=== PATIENT | female | born 1955 | race Caucasian/White ===

== ENCOUNTER → 2020-07-28 | Outpatient (CLI) | payer OTHER ==
[~2020-07-28] MED LIST: CLARITIN 10MG T10 MG PO; COLACE 100MG C100 MG PO; ERYTHROMYCIN OP1 GM OP; OMEPRAZOLE20 M1 PO; TIZANIDINE HCL2 MG PO
== END ==
LOC: KOH-I 13:30
DX: E04.1 Nontoxic single thyroid nodule (principal)
CPT/HCPCS: 76536

== ENCOUNTER → 2020-09-20 | Outpatient (CLI) | payer OTHER | LOC: RAD 09:53 | DX: M25.562 Pain in left knee (principal); M17.12 Unilateral primary osteoarthritis, left knee | CPT/HCPCS: 73564 ==

== ENCOUNTER → 2021-04-21 | Outpatient (CLI) | payer OTHER ==
[2021-04-21 13:26] LABS: BUN/CREATININE RATIO 16 (0-10)
[2021-04-22 10:12] LABS: CREATININE, URINE 149.6 mg/dL (Not Estab.)
== END ==
LOC: LAB 12:35
PROVIDERS: Family Medicine
DX: E11.9 Type 2 diabetes mellitus without complications (principal); E53.8 Deficiency of other specified B group vitamins; E78.2 Mixed hyperlipidemia; K21.9 Gastro-esophageal reflux disease without esophagitis; Z79.899 Other long term (current) drug therapy
CPT/HCPCS: 36415; 80053; 82043; 82570; 82607; 83036; 83735

== ENCOUNTER → 2021-04-25 | Outpatient (CLI) | payer OTHER | LOC: EXRD 09:22 | DX: R07.9 Chest pain, unspecified (principal); R06.02 Shortness of breath | CPT/HCPCS: 71046 ==

== ENCOUNTER → 2021-08-31 | Outpatient (CLI) | payer OTHER | LOC: EXRD 15:03 | DX: M25.561 Pain in right knee (principal); M17.11 Unilateral primary osteoarthritis, right knee | CPT/HCPCS: 73564 ==

== ENCOUNTER → 2021-09-21 | Day surgery (SDC) | payer OTHER ==
[~2021-09-21] MED LIST changes: +B-12500 MCG PO; +FLONASE ALLER15.8 ML; +VOLTAREN 0.1%2.5 ML OP; +XYZAL5 MG PO
== END | disposition home or self-care (01) ==
LOC: OR 06:59
DX: K21.00 Gastro-esophageal reflux disease with esophagitis, without bleeding (principal); K22.2 Esophageal obstruction; K31.9 Disease of stomach and duodenum, unspecified; K44.9 Diaphragmatic hernia without obstruction or gangrene; E11.9 Type 2 diabetes mellitus without complications; E78.5 Hyperlipidemia, unspecified; E66.9 Obesity, unspecified; Z68.32 Body mass index [BMI] 32.0-32.9, adult; Z79.899 Other long term (current) drug therapy; Z20.822 Contact with and (suspected) exposure to COVID-19
CPT/HCPCS: J2001; J2704; J7040

== ENCOUNTER → 2021-11-27 | Outpatient (CLI) | payer OTHER ==
[2021-11-27 13:07] LABS: BUN/CREATININE RATIO 16 (0-10)
== END ==
LOC: LAB 11:31
PROVIDERS: Family Medicine
DX: E78.2 Mixed hyperlipidemia (principal); E53.8 Deficiency of other specified B group vitamins
CPT/HCPCS: 36415; 80053; 80061; 82607

== ENCOUNTER → 2021-12-15 | Outpatient (CLI) | payer OTHER | LOC: EXRD 13:54 | DX: E04.2 Nontoxic multinodular goiter (principal) | CPT/HCPCS: 76536 ==

== ENCOUNTER → 2022-03-23 | Outpatient (CLI) | payer OTHER ==
[2022-03-23 13:00] LABS: BUN/CREATININE RATIO 17 (0-10)
[2022-03-24 10:13] LABS: CREATININE, URINE 75.2 mg/dL (Not Estab.); MICROALB/CREAT RATIO <4 (0-29)
== END ==
LOC: LAB 11:43
PROVIDERS: Family Medicine
DX: E78.2 Mixed hyperlipidemia (principal); E11.9 Type 2 diabetes mellitus without complications; E53.8 Deficiency of other specified B group vitamins
CPT/HCPCS: 36415; 80053; 80061; 82043; 82570; 82607; 83036; 83735